=== PATIENT | female | born 1940 | race Caucasian/White ===

== ENCOUNTER 2024-01-16 13:49 | Inpatient (IN) ==
[2024-01-16 17:40] LABS: ABS Lymphocytes 0.5 10^3/uL (1.0-4.8); ABS Monocytes 0.6 10^3/uL (0.0-0.9); ABS Neutrophils 12.9 10^3/uL (1.5-7.6); ABS Nucleated RBC 0.01 10^3/ul; Eosinophil % 0.1 %; Hematocrit 35.5 % (35-45); Hemoglobin 11.8 g/dL (11.5-14.3); Lymphocyte % 3.3 %; Mean Corpuscular Hemoglobin 30.1 pg (27-33); Mean Corpuscular Hgb Conc 33.3 g/dL (31-36); Mean Corpuscular Volume 90.5 fL (80-97); Mean Platelet Volume 8.1 fL (7.5-11.2); Platelet Count 228 10^3/uL (150-450); Red Blood Count 3.92 10^6/uL (3.63-4.92); Red Cell Distribution Width 14.5 % (12-17)
[2024-01-16 17:57] LABS: Activated Partial Thrombo Time 25.3 seconds (26.0-38.0); INR 1.01 (0.83-1.13)
[2024-01-16] MEDS: Morphine 2 MG/ML SYRINGE IV ONE (18:25)
[2024-01-16 18:28] LABS: Albumin 3.8 g/dL (3.2-5.2); Albumin/Globulin Ratio 1.7 (1-3); Calcium 9.4 mg/dL (8.6-10.3); Creatinine, Serum 0.85 mg/dL (0.51-0.95); Globulin 2.3 g/dL (2-4); Potassium 3.9 mmol/L (3.5-5.0); Total Bilirubin 0.6 mg/dL (0.2-1.0); Total Protein 6.1 g/dL (6.4-8.9); eGFR CKD-EPI 67.1 (>60)
[2024-01-16] MEDS: Heparin 5000 UNITS/ML 1 mL VIAL SUBCUT ONE (21:17)
[2024-01-17] MEDS: Morphine 2 MG/ML SYRINGE IV PRN (02:21)
[2024-01-17 07:01] LABS: ABS Lymphocytes 0.8 10^3/uL (1.0-4.8); ABS Monocytes 0.8 10^3/uL (0.0-0.9); ABS Neutrophils 7.2 10^3/uL (1.5-7.6); Eosinophil % 0.2 %; Hematocrit 31.3 % (35-45); Hemoglobin 10.6 g/dL (11.5-14.3); Lymphocyte % 9.2 %; Mean Corpuscular Hemoglobin 30.7 pg (27-33); Mean Corpuscular Hgb Conc 33.8 g/dL (31-36); Mean Corpuscular Volume 90.9 fL (80-97); Mean Platelet Volume 8.3 fL (7.5-11.2); Platelet Count 197 10^3/uL (150-450); Red Blood Count 3.44 10^6/uL (3.63-4.92); Red Cell Distribution Width 14.5 % (12-17); White Blood Count 8.8 10^3/uL (3.8-11.8)
[2024-01-17 07:45] LABS: Calcium 9.2 mg/dL (8.6-10.3); Creatinine, Serum 0.93 mg/dL (0.51-0.95); Magnesium 1.7 mg/dL (1.9-2.7); eGFR CKD-EPI 60.2 (>60)
[2024-01-17] MEDS: Magnesium Sulfate 2 gm BAG 2 GM/50 ML BAG IVPB ONE (10:25)
[2024-01-17] MEDS ORDERED: ceFAZolin 2 GM PREMIX 2 GM/50 ML BAG ONE (10:39)
[2024-01-17] MEDS: Magnesium Sulfate IV 1GM/100ML 1 GM/100 ML BAG IV ONE (11:29)
[2024-01-17 11:30] LABS: High Sensitivity Troponin 1 Hr 15 pg/mL (<15)
[2024-01-17] MEDS ORDERED: Bupivacaine 0.25% SDV 30 ML ONE (12:43)
[2024-01-17] MEDS ORDERED: Desflurane 240 ML INH ONE (13:06)
[2024-01-17] MEDS ORDERED: Succinylcholine 200 mg VIAL 20 mg/ml 10 ml VIAL (200 mg) ONE (13:06)
[2024-01-17] MEDS ORDERED: Rocuronium 50 mg VIAL 10 mg/ml 5 ml VIAL (50 mg) ONE (13:06)
[2024-01-17] MEDS ORDERED: Midazolam 2 mg/2 ml VIAL 1 mg/ml 2 ml VIAL (2 mg) ONE (13:07)
[2024-01-17] MEDS ORDERED: fentaNYL 100 mcg/2 ml 50 MCG/ML VIAL ONE (13:07)
[2024-01-17] MEDS: Buffered Lidocaine 1% SYRIN 1 ml INTRADERM ONE ×2 (17:18)
[2024-01-17] MEDS: Lactated Ringers 1000 ml BAG 1,000 ML IV SCH ×2 (17:19→17:32)
[2024-01-17] MEDS: Scopolamine 1 mg/72hr PATCH TRANSDERM ONE ×2 (17:32→18:45)
[2024-01-17] MEDS: ceFAZolin 1 GM ADVAN 1 GM in NS 0.9% 50 ML 50 ML IVPB SCH (23:17)
[2024-01-18 05:48] LABS: ABS Monocytes 0.9 10^3/uL (0.0-0.9); ABS Nucleated RBC 0.02 10^3/ul; Eosinophil % 0.1 %; Hematocrit 27.4 % (35-45); Hemoglobin 9.4 g/dL (11.5-14.3); Lymphocyte % 9.7 %; Mean Corpuscular Hemoglobin 31.3 pg (27-33); Mean Corpuscular Hgb Conc 34.4 g/dL (31-36); Mean Corpuscular Volume 90.9 fL (80-97); Mean Platelet Volume 8.4 fL (7.5-11.2); Nucleated Red Blood Cells % 0.2 %/100WBC (0.0-0.8); Platelet Count 180 10^3/uL (150-450); Red Blood Count 3.01 10^6/uL (3.63-4.92); Red Cell Distribution Width 14.7 % (12-17); White Blood Count 9.9 10^3/uL (3.8-11.8)
[2024-01-18 06:43] LABS: Calcium 8.6 mg/dL (8.6-10.3); Creatinine, Serum 1.07 mg/dL (0.51-0.95); Magnesium 2.4 mg/dL (1.9-2.7); Potassium 4.2 mmol/L (3.5-5.0); eGFR CKD-EPI 50.9 (>60)
[2024-01-18] MEDS: Enoxaparin 40 MG/0.4 ML SYR SUBCUT SCH (14:02)
[2024-01-19 06:44] LABS: ABS Eosinophils 0.1 10^3/uL (0.0-0.5); ABS Lymphocytes 0.9 10^3/uL (1.0-4.8); ABS Monocytes 0.8 10^3/uL (0.0-0.9); ABS Neutrophils 7.5 10^3/uL (1.5-7.6); Eosinophil % 1.1 %; Hematocrit 24.3 % (35-45); Hemoglobin 8.4 g/dL (11.5-14.3); Lymphocyte % 9.8 %; Mean Corpuscular Hemoglobin 31.1 pg (27-33); Mean Corpuscular Hgb Conc 34.5 g/dL (31-36); Mean Corpuscular Volume 90.3 fL (80-97); Mean Platelet Volume 8.8 fL (7.5-11.2); Platelet Count 171 10^3/uL (150-450); Red Cell Distribution Width 14.7 % (12-17); White Blood Count 9.3 10^3/uL (3.8-11.8)
[2024-01-19 06:57] LABS: Calcium 8.5 mg/dL (8.6-10.3); Creatinine, Serum 1.25 mg/dL (0.51-0.95); Magnesium 2.2 mg/dL (1.9-2.7); Potassium 4.4 mmol/L (3.5-5.0); eGFR CKD-EPI 42.2 (>60)
[2024-01-19] MEDS ORDERED: Sulfur Hexaflouride MICROSPHR 25 MG VIAL ONE (11:42)
[2024-01-19] MEDS ORDERED: Morphine 2 MG/ML SYRINGE IV PRN (17:29)
[2024-01-20 06:28] LABS: ABS Eosinophils 0.1 10^3/uL (0.0-0.5); ABS Lymphocytes 0.7 10^3/uL (1.0-4.8); ABS Monocytes 0.6 10^3/uL (0.0-0.9); ABS Neutrophils 7.3 10^3/uL (1.5-7.6); Eosinophil % 1.5 %; Hematocrit 22.7 % (35-45); Hemoglobin 7.8 g/dL (11.5-14.3); Mean Corpuscular Hgb Conc 34.2 g/dL (31-36); Mean Corpuscular Volume 90.8 fL (80-97); Mean Platelet Volume 8.3 fL (7.5-11.2); Platelet Count 194 10^3/uL (150-450); Red Cell Distribution Width 14.9 % (12-17); White Blood Count 8.8 10^3/uL (3.8-11.8)
[2024-01-20 06:49] LABS: Anion Gap 9 mmol/L (2-16); Blood Urea Nitrogen 31 mg/dL (6-24); CO2 Carbon Dioxide 24 mmol/L (22-32); Calcium 8.4 mg/dL (8.6-10.3); Chloride 105 mmol/L (101-111); Creatinine, Serum 1.19 mg/dL (0.51-0.95); Glucose 91 mg/dL (70-100); Magnesium 2.2 mg/dL (1.9-2.7); Potassium 4.6 mmol/L (3.5-5.0); Sodium 138 mmol/L (135-145); eGFR CKD-EPI 44.8 (>60)
[2024-01-20 14:48] LABS: % Iron Saturation 8 % (15-55); .Transferrin 182 mg/dL (203-362); Iron < 20 ug/dL (50-212); Total Iron Binding Capacity 255 mcg/dL (250-450); Unsaturated Iron Binding 235 ug/dL
[2024-01-20 15:00] LABS: Ferritin 69.4 ng/mL (11-307)
[2024-01-20 15:56] LABS: Hematocrit 23.3 % (35-45); Hemoglobin 8.1 g/dL (11.5-14.3)
[2024-01-21 11:55] LABS: ABS Eosinophils 0.1 10^3/uL (0.0-0.5); ABS Lymphocytes 0.5 10^3/uL (1.0-4.8); ABS Monocytes 0.7 10^3/uL (0.0-0.9); ABS Neutrophils 7.4 10^3/uL (1.5-7.6); ABS Nucleated RBC 0.01 10^3/ul; Eosinophil % 1.6 %; Hematocrit 23.3 % (35-45); Hemoglobin 7.9 g/dL (11.5-14.3); Lymphocyte % 6.2 %; Mean Corpuscular Hemoglobin 30.7 pg (27-33); Mean Corpuscular Hgb Conc 33.8 g/dL (31-36); Mean Corpuscular Volume 90.6 fL (80-97); Mean Platelet Volume 7.8 fL (7.5-11.2); Nucleated Red Blood Cells % 0.1 %/100WBC (0.0-0.8); Platelet Count 268 10^3/uL (150-450); Red Blood Count 2.57 10^6/uL (3.63-4.92); Red Cell Distribution Width 14.8 % (12-17); White Blood Count 8.8 10^3/uL (3.8-11.8)
[2024-01-21 12:50] LABS: Calcium 8.5 mg/dL (8.6-10.3); Creatinine, Serum 0.93 mg/dL (0.51-0.95); Potassium 4.7 mmol/L (3.5-5.0); eGFR CKD-EPI 60.2 (>60)
[2024-01-21] MEDS ORDERED: Magnesium Hydroxide LIQ 30 ML UDC PO PRN (13:13)
[2024-01-21] MEDS: Aspirin EC 81 mg TAB.EC (enteric coated) PO SCH (13:58)
[2024-01-21 18:52] LABS: Urine Appearance Clear; Urine Bilirubin Negative (Negative); Urine Blood Trace (Negative); Urine Color Yellow; Urine Glucose Negative (Negative); Urine Ketones Negative (Negative); Urine Nitrite Negative (Negative); Urine Protein Trace (Negative); Urine Specific Gravity 1.025 (1.002-1.030); Urine Urobilinogen Negative (Negative); Urine pH 5.5 (5.0-8.0)
[2024-01-22 09:04] LABS: Hematocrit 23.9 % (35-45); Hemoglobin 8.3 g/dL (11.5-14.3)
[2024-01-22] MEDS ORDERED: Rocuronium 50 mg VIAL 10 mg/ml 5 ml VIAL (50 mg) ONE ×3 (11:43→17:50)
[2024-01-22] MEDS ORDERED: Ondansetron 4 mg VIAL 2 MG/ML 2 ml VIAL ONE (11:43)
[2024-01-22] MEDS ORDERED: fentaNYL 100 mcg/2 ml 50 MCG/ML VIAL ONE ×2 (11:43→14:01)
[2024-01-22] MEDS ORDERED: Dexamethasone IV 4 MG/ML VIAL 1 ml VIAL ONE ×2 (11:43→14:01)
[2024-01-22] MEDS ORDERED: Lidocaine 2% PF 5 ML VIAL ONE (11:43)
[2024-01-22] MEDS ORDERED: Propofol 10 MG/ML 20 ML BTL ONE ×2 (11:43→11:45)
[2024-01-22] MEDS ORDERED: ROPIVACAINE 5 MG/ML 30 ML BTL (0.5%) ONE (14:01)
[2024-01-22] MEDS ORDERED: Albumin Human 5% 25.0 GM/500 ML BTL IV ONE (14:20)
[2024-01-22] MEDS ORDERED: Bupivacaine 0.25% SDV 30 ML ONE (14:35)
[2024-01-22] MEDS ORDERED: ceFAZolin 2 GM PREMIX 2 GM/50 ML BAG ONE (14:52)
[2024-01-22] MEDS ORDERED: Vancomycin 1,000 MG VIAL ONE (15:40)
[2024-01-22] MEDS ORDERED: Naloxone 0.4 mg VIAL 0.4 mg/ml 1 ml VIAL IV PRN (16:11)
[2024-01-22] MEDS ORDERED: fentaNYL 100 mcg/2 ml 50 MCG/ML VIAL IV PRN (16:11)
[2024-01-22] MEDS ORDERED: Ondansetron 4 mg VIAL 2 MG/ML 2 ml VIAL IV PRN (16:11)
[2024-01-22] MEDS ORDERED: Metoclopramide 5 MG/ML VIAL (10 mg) IV PRN (16:11)
[2024-01-22] MEDS ORDERED: HYDROmorphone 0.5 MG/0.5 ML SYRINGE ONE (18:22)
[2024-01-22] MEDS: ceFAZolin 1 GM ADVAN 1 GM in NS 0.9% 50 ML 50 ML IVPB SCH (23:48)
[2024-01-23 07:32] LABS: Hematocrit 22.4 % (35-45); Hemoglobin 7.6 g/dL (11.5-14.3); Mean Corpuscular Volume 91.3 fL (80-97); Mean Platelet Volume 7.3 fL (7.5-11.2); Platelet Count 354 10^3/uL (150-450); Red Blood Count 2.46 10^6/uL (3.63-4.92); Red Cell Distribution Width 14.8 % (12-17)
[2024-01-23 08:14] LABS: Creatinine, Serum 0.93 mg/dL (0.51-0.95); Potassium 5.4 mmol/L (3.5-5.0)
[2024-01-23 08:15] LABS: Calcium 8.6 mg/dL (8.6-10.3); Magnesium 1.9 mg/dL (1.9-2.7); eGFR CKD-EPI 60.2 (>60)
[2024-01-23] MEDS: Enoxaparin 30 MG/0.3 ML SYR SUBCUT SCH (08:37)
[2024-01-24 06:17] LABS: ABS Eosinophils 0.1 10^3/uL (0.0-0.5); ABS Lymphocytes 0.8 10^3/uL (1.0-4.8); ABS Monocytes 0.6 10^3/uL (0.0-0.9); ABS Neutrophils 5.4 10^3/uL (1.5-7.6); Eosinophil % 0.8 %; Hematocrit 19.5 % (35-45); Hemoglobin 6.6 g/dL (11.5-14.3); Lymphocyte % 11.8 %; Mean Corpuscular Hemoglobin 31.1 pg (27-33); Mean Corpuscular Hgb Conc 33.9 g/dL (31-36); Mean Corpuscular Volume 91.7 fL (80-97); Mean Platelet Volume 7.3 fL (7.5-11.2); Platelet Count 348 10^3/uL (150-450); Red Blood Count 2.13 10^6/uL (3.63-4.92); Red Cell Distribution Width 14.9 % (12-17)
[2024-01-24 06:35] LABS: Calcium 8.3 mg/dL (8.6-10.3); Creatinine, Serum 1.03 mg/dL (0.51-0.95); Magnesium 1.9 mg/dL (1.9-2.7); Potassium 4.7 mmol/L (3.5-5.0); eGFR CKD-EPI 53.3 (>60)
[2024-01-24] MEDS: Magnesium Sulfate 2 gm BAG 2 GM/50 ML BAG IVPB ONE (16:18)
[2024-01-24] MEDS: Ferric Gluconate IV 250 MG in NS 0.9% 250 ml 200 ML IVPB SCH (18:15)
[2024-01-24 18:25] LABS: Hematocrit 27.8 % (35-45); Hemoglobin 9.5 g/dL (11.5-14.3)
[2024-01-25 05:28] LABS: ABS Eosinophils 0.1 10^3/uL (0.0-0.5); ABS Lymphocytes 0.9 10^3/uL (1.0-4.8); ABS Monocytes 0.7 10^3/uL (0.0-0.9); ABS Neutrophils 5.3 10^3/uL (1.5-7.6); ABS Nucleated RBC 0.01 10^3/ul; Eosinophil % 1.8 %; Hematocrit 25.7 % (35-45); Hemoglobin 8.8 g/dL (11.5-14.3); Lymphocyte % 12.9 %; Mean Corpuscular Hemoglobin 30.7 pg (27-33); Mean Corpuscular Hgb Conc 34.3 g/dL (31-36); Mean Corpuscular Volume 89.3 fL (80-97); Mean Platelet Volume 7.3 fL (7.5-11.2); Nucleated Red Blood Cells % 0.1 %/100WBC (0.0-0.8); Platelet Count 388 10^3/uL (150-450); Red Blood Count 2.87 10^6/uL (3.63-4.92); Red Cell Distribution Width 15.9 % (12-17); White Blood Count 7.1 10^3/uL (3.8-11.8)
[2024-01-25 05:46] LABS: Calcium 8.5 mg/dL (8.6-10.3); Creatinine, Serum 0.86 mg/dL (0.51-0.95); Magnesium 2.2 mg/dL (1.9-2.7); Potassium 4.5 mmol/L (3.5-5.0); eGFR CKD-EPI 66.2 (>60)
[2024-01-25 10:59] VITALS: BP 135/64
== END 2024-01-25 13:25 | DRG 481 ==
LOC: ED 13:49 → EDHOLD 13:49 → SUATTDRO 18:35 → MEDTELE 20:55 → SUATTDRO 22:00 → MEDTELE 22:08 → SSU 01-17 17:27
PROVIDERS: ADMIT Internal Medicine; ATTEND Internal Medicine

== ENCOUNTER 2024-01-23 08:55 | Inpatient (IN) ==
[2024-01-25] MEDS ORDERED: Al Hydrox/Mg Hydrox/Simet LIQ 30 ML UDC PO PRN (08:41)
[2024-01-25] MEDS: Ferric Gluconate IV 250 MG in NS 0.9% 250 ml 200 ML IVPB SCH (19:10)
[2024-01-26 06:25] LABS: ABS Eosinophils 0.2 10^3/uL (0.0-0.5); ABS Lymphocytes 1.1 10^3/uL (1.0-4.8); ABS Monocytes 0.6 10^3/uL (0.0-0.9); ABS Neutrophils 6.9 10^3/uL (1.5-7.6); ABS Nucleated RBC 0.01 10^3/ul; Eosinophil % 2.8 %; Hematocrit 26.6 % (35-45); Hemoglobin 9.1 g/dL (11.5-14.3); Lymphocyte % 12.2 %; Mean Corpuscular Hemoglobin 30.6 pg (27-33); Mean Corpuscular Hgb Conc 34.2 g/dL (31-36); Mean Corpuscular Volume 89.6 fL (80-97); Mean Platelet Volume 7.1 fL (7.5-11.2); Nucleated Red Blood Cells % 0.1 %/100WBC (0.0-0.8); Platelet Count 466 10^3/uL (150-450); Red Blood Count 2.97 10^6/uL (3.63-4.92); Red Cell Distribution Width 15.9 % (12-17)
[2024-01-26 07:06] LABS: Albumin 2.8 g/dL (3.2-5.2); Albumin/Globulin Ratio 1.6 (1-3); Calcium 8.4 mg/dL (8.6-10.3); Creatinine, Serum 0.8 mg/dL (0.51-0.95); Globulin 1.8 g/dL (2-4); Potassium 4.8 mmol/L (3.5-5.0); Total Bilirubin 1.1 mg/dL (0.2-1.0); Total Protein 4.6 g/dL (6.4-8.9); eGFR CKD-EPI 72.2 (>60)
[2024-01-26] MEDS: Enoxaparin 30 MG/0.3 ML SYR SUBCUT SCH (08:00)
[2024-01-26] MEDS: Magnesium Hydroxide LIQ 30 ML UDC PO PRN (18:08)
[2024-01-26] MEDS: Senna TAB 8.6 mg TAB PO PRN (20:42)
[2024-01-30 06:34] LABS: ABS Basophils 0.1 10^3/uL (0.0-0.1); ABS Eosinophils 0.3 10^3/uL (0.0-0.5); ABS Lymphocytes 0.9 10^3/uL (1.0-4.8); ABS Monocytes 0.6 10^3/uL (0.0-0.9); ABS Neutrophils 5.7 10^3/uL (1.5-7.6); Eosinophil % 4.1 %; Hematocrit 24.2 % (35-45); Hemoglobin 8.2 g/dL (11.5-14.3); Lymphocyte % 12.3 %; Mean Corpuscular Hemoglobin 31.1 pg (27-33); Mean Corpuscular Hgb Conc 33.8 g/dL (31-36); Mean Platelet Volume 7.2 fL (7.5-11.2); Nucleated Red Blood Cells % 0.1 %/100WBC (0.0-0.8); Platelet Count 466 10^3/uL (150-450); Red Blood Count 2.63 10^6/uL (3.63-4.92); Red Cell Distribution Width 16.5 % (12-17); White Blood Count 7.6 10^3/uL (3.8-11.8)
[2024-01-31 06:13] LABS: ABS Basophils 0.1 10^3/uL (0.0-0.1); ABS Eosinophils 0.3 10^3/uL (0.0-0.5); ABS Lymphocytes 0.8 10^3/uL (1.0-4.8); ABS Monocytes 0.5 10^3/uL (0.0-0.9); ABS Neutrophils 5.2 10^3/uL (1.5-7.6); ABS Nucleated RBC 0.01 10^3/ul; Eosinophil % 3.9 %; Hematocrit 25.9 % (35-45); Hemoglobin 8.8 g/dL (11.5-14.3); Lymphocyte % 11.3 %; Mean Corpuscular Hemoglobin 31.3 pg (27-33); Mean Corpuscular Hgb Conc 33.8 g/dL (31-36); Mean Corpuscular Volume 92.7 fL (80-97); Mean Platelet Volume 7.1 fL (7.5-11.2); Nucleated Red Blood Cells % 0.1 %/100WBC (0.0-0.8); Platelet Count 483 10^3/uL (150-450); Red Cell Distribution Width 18.4 % (12-17); White Blood Count 6.8 10^3/uL (3.8-11.8)
[2024-02-02 06:50] LABS: ABS Basophils 0.1 10^3/uL (0.0-0.1); ABS Eosinophils 0.2 10^3/uL (0.0-0.5); ABS Lymphocytes 0.9 10^3/uL (1.0-4.8); ABS Monocytes 0.4 10^3/uL (0.0-0.9); ABS Neutrophils 4.7 10^3/uL (1.5-7.6); ABS Nucleated RBC 0.01 10^3/ul; Eosinophil % 3.4 %; Hemoglobin 9.4 g/dL (11.5-14.3); Lymphocyte % 13.6 %; Mean Corpuscular Hemoglobin 31.8 pg (27-33); Mean Corpuscular Hgb Conc 33.7 g/dL (31-36); Mean Corpuscular Volume 94.3 fL (80-97); Mean Platelet Volume 7.3 fL (7.5-11.2); Nucleated Red Blood Cells % 0.1 %/100WBC (0.0-0.8); Platelet Count 477 10^3/uL (150-450); Red Blood Count 2.97 10^6/uL (3.63-4.92); Red Cell Distribution Width 19.2 % (12-17); White Blood Count 6.3 10^3/uL (3.8-11.8)
[2024-02-02 07:09] LABS: Albumin 3.3 g/dL (3.2-5.2); Albumin/Globulin Ratio 1.5 (1-3); Calcium 9.1 mg/dL (8.6-10.3); Creatinine, Serum 0.99 mg/dL (0.51-0.95); Globulin 2.2 g/dL (2-4); Potassium 4.8 mmol/L (3.5-5.0); Total Bilirubin 0.8 mg/dL (0.2-1.0); Total Protein 5.5 g/dL (6.4-8.9); eGFR CKD-EPI 55.9 (>60)
[2024-02-06 05:51] VITALS: BP 135/70
== END 2024-02-06 14:20 | DRG 561 ==
LOC: PMRU 01-25 13:27
PROVIDERS: ADMIT Physical Medicine & Rehabilitation; ATTEND Physical Medicine & Rehabilitation